=== PATIENT | male | born 1965 ===

== ENCOUNTER 2022-03-21 06:00 | Day surgery (SDC) | payer OTHER | END 2022-03-21 12:40 | disposition home or self-care (01) | LOC: AMB-ENDOS 06:00 | PROVIDERS: ATTEND Colon & Rectal Surgery | DX: K57.30 Diverticulosis of large intestine without perforation or abscess without bleeding (principal); Z20.822 Contact with and (suspected) exposure to COVID-19; I10 Essential (primary) hypertension; Z88.6 Allergy status to analgesic agent ==